=== PATIENT | female | born 1985 | race Caucasian/White ===

== ENCOUNTER 2017-07-29 09:39 | Emergency (ER) | payer MEDICAID, SELFPAY ==
[2017-07-29 09:40] VITALS: BP 152/82; PULSE 87; RESP 14; TEMP 36.9; O2SAT 98; BMI 27.8
--- NOTE | 2017-07-29 09:47 | XR_ITS ---
XR chest 2V HISTORY: ITS.REASON: chest pain ORDERING PHYSICIAN: Jose Westfall MD PATIENT AGE: 31 years COMPARISON: 09/06/2015 FINDINGS: The cardiomediastinal silhouette and pulmonary vascularity are within normal limits. The lungs are clear without infiltrates, suspicious nodules, or pleural effusions. No acute bony abnormalities. IMPRESSION: No change with no acute finding
--- NOTE | 2017-07-29 09:57 | [facility].EDCP ---
ED Disposition Clinical Impression: Atypical chest pain, Pleurisy Disposition: Home, Self-Care Condition on Discharge: Good Additional Instructions: Daily aspirin Finish antibiotics Regular treadmill stress test this afternoon Follow-up with Clarita adam after the stress test. Return if needed. - Critical Care Critical Care Time: No Attestation: On , the high probability of a clinically significant, sudden or life threatening deterioration of the following system(s) required my full and direct attention, intervention and personal management. The time I documented below is in addition to time spent performing reported procedures but includes the following listed in this critical care notation. Medical Decision Making Vital Signs: 07/29/17 09:40 07/29/17 11:10 07/29/17 11:54 Temperature 98.4 F 98.2 F Temperature Source Oral Oral Pulse Rate [Right Brachial] 87 76 75 Respiratory Rate 14 18 14 Blood Pressure [Right Arm] 152/82 115/59 121/75 Blood Pressure Mean [Right Arm] 105 77 90 Blood Pressure Source [Right Arm] Automatic Cuff Automatic Cuff Automatic Cuff Blood Pressure Position [Right Arm] Sitting Supine Sitting 02 Sat by Pulse Oximetry 98 98 99 Oxygen Delivery Method Room Air Room Air Room Air - Lab Data Lab Results 07/29/17 09:45: WBC 7.1, RBC 4.94, Hgb 15.6, Hct 46.9, MCV 95.1, MCH 31.5 H, MCHC 33.2, RDW 12.4, Plt Count 269, MPV 7.0 L, Neut % (Auto) 61.9, Lymph % (Auto) 29.4, [place] % (Auto) 5.9, Eos % (Auto) 2.3, Baso % (Auto) 0.5, Neut # (Auto) 4.4, Lymph # (Auto) 2.1, [place] # (Auto) 0.4, Eos # (Auto) 0.2, Baso # (Auto) 0.0 07/29/17 09:45: Sodium 138, Potassium 4.1, Chloride 102, Carbon Dioxide 28, Anion Gap 12.1, BUN 12, Creatinine 0.95, Estimated Creat Clear 118, Estimated GFR 70, Est GFR ( Amer) 84, Glucose 92, Calcium 9.6, Total Bilirubin 0.6, AST 19, ALT 22, Alkaline Phosphatase 60, Total Creatine Kinase 72, CK-MB (CK-2) < 0.5, CK-MB (CK-2) Rel Index 0.7, Troponin I < 0.02, Total Protein 8.9 H, Albumin 4.6, Globulin 4.3 H, Albumin/Globulin Ratio 1.1 07/29/17 09:45: D-Dimer < 100 07/29/17 09:45: B-Natriuretic Peptide < 5 07/29/17 09:45: ESR 25 H 07/29/17 10:05: Group A Strep Rapid Negative 07/29/17 12:09: Troponin I < 0.02 Result diagrams: 07/29/17 09:45 07/29/17 09:45 Orders (Tests/Meds): ORDERS Category Date Time Status Strep Screen Confirmation Stat Micro 07/29/17 10:05 Received - Sai Inquiry Pt receiving controlled substance: No Sai was queried for this patient: No Medical Decision Making Narrative: I did discuss with the patient her cardiac and PE risk factors. She is a low risk for coronary artery disease and pain. The patient tested negative for coronary artery disease and was ruled out for myocardial infarction by 2 negative troponins. Her d-dimer was negative. Her chest x-ray was within normal limits. The patient's sed rate was 25 which is more indicative of pleurisy and a post strep illness. She was scheduled for a regular treadmill stress test this afternoon. She was advised for daily aspirin. I called Clarita Adam her primary care physician and informed her of this afternoon test and she is to follow on the results. Patient was discharged in hemodynamically and neurologically stable condition follow-up with a primary care physician. Return if needed. Chest Pain HPI - General Chief Complaint: Chest Pain Stated Complaint: CHEST PAIN Mode of Arrival: Ambulatory Source of Information: Patient Limitations: No Limitations Description of Symptoms (Recalled from ER Triage Doc. by RN): PT ADVISES LAST NIGHT SHE HAD AN EPISODE LAST NIGHT OF CHEST PAIN AND SOA. THIS MORNING SHE WOKE UP STILL HAVING A DULL CONSTANT PAIN IN HER CHEST. SHE TOOK SOME ASA AND CONTACTED HER FAMILY DOC. - History of Present Illness HPI narrative: 31 years old white female with history of anxiety and panic attacks in the form of chest pain and palpitati
--- NOTE | 2017-07-29 10:01 | ED_ITS ---
ED Disposition Clinical Impression: Atypical chest pain, Pleurisy Disposition: Home, Self-Care Condition on Discharge: Good Additional Instructions: Daily aspirin Finish antibiotics Regular treadmill stress test this afternoon Follow-up with Clarita adam after the stress test. Return if needed. - Critical Care Critical Care Time: No Attestation: On , the high probability of a clinically significant, sudden or life threatening deterioration of the following system(s) required my full and direct attention, intervention and personal management. The time I documented below is in addition to time spent performing reported procedures but includes the following listed in this critical care notation. Medical Decision Making Vital Signs: 07/29/17 09:40 07/29/17 11:10 07/29/17 11:54 Temperature 98.4 F 98.2 F Temperature Source Oral Oral Pulse Rate [Right Brachial] 87 76 75 Respiratory Rate 14 18 14 Blood Pressure [Right Arm] 152/82 115/59 121/75 Blood Pressure Mean [Right Arm] 105 77 90 Blood Pressure Source [Right Arm] Automatic Cuff Automatic Cuff Automatic Cuff Blood Pressure Position [Right Arm] Sitting Supine Sitting 02 Sat by Pulse Oximetry 98 98 99 Oxygen Delivery Method Room Air Room Air Room Air - Lab Data Lab Results 07/29/17 09:45: WBC 7.1, RBC 4.94, Hgb 15.6, Hct 46.9, MCV 95.1, MCH 31.5 H, MCHC 33.2, RDW 12.4, Plt Count 269, MPV 7.0 L, Neut % (Auto) 61.9, Lymph % (Auto ) 29.4, [place] % (Auto) 5.9, Eos % (Auto) 2.3, Baso % (Auto) 0.5, Neut # (Auto) 4.4, Lymph # (Auto) 2.1, [place] # (Auto) 0.4, Eos # (Auto) 0.2, Baso # (Auto) 0.0 07/29/17 09:45: Sodium 138, Potassium 4.1, Chloride 102, Carbon Dioxide 28, Anion Gap 12.1, BUN 12, Creatinine 0.95, Estimated Creat Clear 118, Estimated GFR 70, Est GFR ( Amer) 84, Glucose 92, Calcium 9.6, Total Bilirubin 0.6 , AST 19, ALT 22, Alkaline Phosphatase 60, Total Creatine Kinase 72, CK-MB (CK-2 ) < 0.5, CK-MB (CK-2) Rel Index 0.7, Troponin I < 0.02, Total Protein 8.9 H, Albumin 4.6, Globulin 4.3 H, Albumin/Globulin Ratio 1.1 07/29/17 09:45: D-Dimer < 100 07/29/17 09:45: B-Natriuretic Peptide < 5 07/29/17 09:45: ESR 25 H 07/29/17 10:05: Group A Strep Rapid Negative 07/29/17 12:09: Troponin I < 0.02 Result diagrams: 07/29/17 09:45 07/29/17 09:45 Orders (Tests/Meds): ORDERS Category Date Time Status Strep Screen Confirmation Stat Micro 07/29/17 10:05 Received - Sai Inquiry Pt receiving controlled substance: No Sai was queried for this patient: No Medical Decision Making Narrative: I did discuss with the patient her cardiac and PE risk factors. She is a low risk for coronary artery disease and pain. The patient tested negative for coronary artery disease and was ruled out for myocardial infarction by 2 negative troponins. Her d-dimer was negative. Her chest x-ray was within normal limits. The patient's sed rate was 25 which is more indicative of pleurisy and a post strep illness. She was scheduled for a regular treadmill stress test this afternoon. She was advised for daily aspirin. I called Clarita Adam her primary care physician and informed her of this afternoon test and she is to follow on the results. Patient was discharged in hemodynamically and neurologically stable condition follow-up with a primary care physician. Return if needed. Chest Pain HPI - General Chief Comp
[2017-07-29 10:09] LABS: Basophils % 0.5 % (0.1-2.0); Eosinophils # 0.2 K/mm3 (0.0-0.4); Eosinophils % 2.3 % (0.1-12.0); Hematocrit 46.9 % (37.0-47.0); Hemoglobin 15.6 g/dL (12.2-16.2); Lymphocytes # 2.1 K/mm3 (0.7-4.5); Lymphocytes % 29.4 K/mm3 (10-50); Mean Corpuscular HGB Conc 33.2 g/dL (31.8-35.4); Mean Corpuscular Hemoglobin 31.5 pg (27.0-31.2); Mean Corpuscular Volume 95.1 fl (81-99); Monocytes # 0.4 K/mm3 (0.1-1.0); Monocytes % 5.9 % (1.7-9.3); Neutrophils # 4.4 K/mm3 (1.8-7.8); Neutrophils % 61.9 % (37.0-80.0); Platelet Count 269 K/mm3 (142-424); Red Blood Count 4.94 M/mm3 (4.20-5.40); Red Cell Distribution Width 12.4 % (11.5-17.5); White Blood Count 7.1 K/mm3 (4.8-10.8)
[2017-07-29 10:18] LABS: Strep Scrn Group A (Rapid) Negative (Negative)
[2017-07-29 10:37] LABS: Alanine Aminotransferase 22 U/L (12-78); Albumin Level 4.6 gm/dL (3.4-5.0); Albumin/Globulin Ratio 1.1 (1.1-1.8); Alkaline Phosphatase 60 U/L (46-116); Anion Gap 12.1 mEq/L (5-15); Aspartate Amino Transferase 19 U/L (15-37); Bilirubin,Total 0.6 mg/dL (0.2-1.0); Blood Urea Nitrogen 12 mg/dL (7-18); Calcium 9.6 mg/dL (8.5-10.1); Carbon Dioxide 28 mmol/L (21.0-32.0); Chloride 102 mmol/L (98-107); Creatine Kinase 72 U/L (26-192); Creatinine Clearance Estimated 118 mL/min (0-300); Creatinine,Serum 0.95 mg/dL (0.55-1.02); Estimated Glomerular Filt Rate 70 ml/min (>60); GFR (African American) 84 ML/MIN (>60); Globulin 4.3 gm/dl (1.3-3.2); Glucose 92 mg/dL (74-106); Potassium 4.1 mmoL/L (3.5-5.1); Sodium 138 mmol/L (136-145); Total Protein,Serum 8.9 gm/dL (6.4-8.2); Troponin I < 0.02 ng/ml (0.00-0.06)
[2017-07-29 10:41] LABS: CKMB Relative Index 0.7 U/L (0-4.0); Creatine Kinase MB < 0.5 mg/ml (0.0-3.6)
[2017-07-29 11:10] VITALS: BP 115/59; PULSE 76; RESP 18; O2SAT 98
[2017-07-29 11:19] LABS: D-Dimer < 100 (0-400)
[2017-07-29 11:33] LABS: Erythrocyte Sedimentation Rate 25 mm/hr (0-20)
[2017-07-29 11:54] VITALS: BP 121/75; PULSE 75; RESP 14; TEMP 36.8; O2SAT 99
[2017-07-29 12:40] LABS: Troponin I < 0.02 ng/ml (0.00-0.06)
[2017-07-29 13:14] VITALS: BP 121/75; PULSE 78; RESP 14; TEMP 36.9
== END 2017-07-29 13:17 | disposition home or self-care (01) ==
PROVIDERS: Emergency Provider Emergency Medicine; Family Provider Internal Medicine Adolescent Medicine; PCP Physician Assistant
DX: R07.9 Chest pain, unspecified (principal); R09.1 Pleurisy; R07.89 Other chest pain; R06.02 Shortness of breath
CPT/HCPCS: 71046; 80053; 82550; 82553; 83880; 84484; 85025; 85378; 85651; 87430; 93005; 93041; 99284

== ENCOUNTER → 2017-07-29 13:10 | Outpatient (CLI) | payer MEDICAID, SELFPAY | PROVIDERS: PCP Emergency Medicine; Visit Provider Emergency Medicine | DX: R07.9 Chest pain, unspecified (principal) | CPT/HCPCS: 93017 ==

== ENCOUNTER → 2017-08-09 09:14 | Outpatient (REF) | payer MEDICAID, SELFPAY ==
[2017-08-09 14:07] LABS: Basophils % 0.5 % (0.1-2.0); Eosinophils # 0.3 K/mm3 (0.0-0.4); Eosinophils % 4.2 % (0.1-12.0); Hematocrit 41.4 % (37.0-47.0); Hemoglobin 13.7 g/dL (12.2-16.2); Lymphocytes # 2.4 K/mm3 (0.7-4.5); Mean Corpuscular HGB Conc 33.1 g/dL (31.8-35.4); Mean Corpuscular Hemoglobin 31.7 pg (27.0-31.2); Mean Corpuscular Volume 95.9 fl (81-99); Mean Platelet Volume 7.9 fl (7.4-10.4); Monocytes # 0.4 K/mm3 (0.1-1.0); Monocytes % 6.2 % (1.7-9.3); Neutrophils # 3.2 K/mm3 (1.8-7.8); Neutrophils % 51.1 % (37.0-80.0); Platelet Count 279 K/mm3 (142-424); Red Blood Count 4.32 M/mm3 (4.20-5.40); Red Cell Distribution Width 12.1 % (11.5-17.5); White Blood Count 6.3 K/mm3 (4.8-10.8)
[2017-08-09 14:08] LABS: C-Reactive Protein < 0.2 mg/L (0.0-0.9)
[2017-08-10 11:18] LABS: Anti-Jo-1 <0.2 AI (0.0-0.9); Anti-Smith Antibody <0.2 AI (0.0-0.9); Antichromatin Antibodies <0.2 AI (0.0-0.9); Antiscleroderma-70 Antibodies <0.2 AI (0.0-0.9); RNP Antibodies <0.2 AI (0.0-0.9); Sjogren's Anti-SS-A <0.2 AI (0.0-0.9); Sjogren's Anti-SS-B <0.2 AI (0.0-0.9)
[2017-08-10 13:38] LABS: Anti-Centromere B Antibodies <0.2 AI (0.0-0.9); Anti-DNA (DS) Ab Qn <1 IU/mL (0-9); Folate 15.5 ng/mL (>3.0); RA Latex Turbid. <10.0 IU/mL (0.0-13.9); Vitamin B12 788 pg/mL (232-1245)
[2017-08-13 05:18] LABS: 1,25-Dihydroxy, Vitamin D-2 <10 pg/mL (.)
[2017-08-13 18:22] LABS: 1,25 Dihydroxy Vitamin D 25 pg/mL (.); 1,25-Dihydroxy, Vitamin D-3 25 pg/mL (.)
== END ==
LOC: LAB 09:14
PROVIDERS: Visit Provider Physician Assistant
DX: R70.0 Elevated erythrocyte sedimentation rate (principal)
CPT/HCPCS: 82607; 82652; 82746; 85025; 86038; 86140; 86431

== ENCOUNTER → 2017-10-06 13:09 | Outpatient (CLI) | payer MEDICAID, SELFPAY ==
--- NOTE | 2017-10-06 13:22 | XR_ITS ---
XR acute abdomen series HISTORY: ITS.REASON: LLQ pain ORDERING PHYSICIAN: FELIPE Hopkins PATIENT AGE: 31 years COMPARISON: None FINDINGS: A frontal view of the chest shows no acute finding. Upright and supine views of the abdomen show a nonspecific nonobstructive bowel gas pattern with a mild amount of retained colonic feces. Nonspecific calcifications are present in the pelvis. There are calcific densities overlying both kidneys suggesting bilateral nephrolithiasis. This may be confirmed with CT. IMPRESSION: Bilateral nephrolithiasis
[2017-10-06 13:30] LABS: Basophils % 0.3 % (0.1-2.0); Eosinophils # 0.1 K/mm3 (0.0-0.4); Eosinophils % 1.3 % (0.1-12.0); Hematocrit 44.7 % (37.0-47.0); Hemoglobin 14.7 g/dL (12.2-16.2); Lymphocytes # 1.9 K/mm3 (0.7-4.5); Lymphocytes % 25.9 K/mm3 (10-50); Mean Corpuscular HGB Conc 32.9 g/dL (31.8-35.4); Mean Corpuscular Hemoglobin 31.6 pg (27.0-31.2); Mean Corpuscular Volume 96.1 fl (81-99); Mean Platelet Volume 7.2 fl (7.4-10.4); Monocytes # 0.4 K/mm3 (0.1-1.0); Monocytes % 4.7 % (1.7-9.3); Neutrophils # 5.1 K/mm3 (1.8-7.8); Neutrophils % 67.8 % (37.0-80.0); Platelet Count 289 K/mm3 (142-424); Red Blood Count 4.65 M/mm3 (4.20-5.40); White Blood Count 7.5 K/mm3 (4.8-10.8)
[2017-10-06 14:36] LABS: Alanine Aminotransferase 20 U/L (12-78); Albumin Level 4.1 gm/dL (3.4-5.0); Albumin/Globulin Ratio 1.1 (1.1-1.8); Alkaline Phosphatase 57 U/L (46-116); Anion Gap 13.1 mEq/L (5-15); Aspartate Amino Transferase 11 U/L (15-37); Bilirubin,Total 0.6 mg/dL (0.2-1.0); Blood Urea Nitrogen 9 mg/dL (7-18); Calcium 9.4 mg/dL (8.5-10.1); Carbon Dioxide 28 mmol/L (21.0-32.0); Chloride 103 mmol/L (98-107); Chol/HDL Ratio 3.1 (1-3.5); Cholesterol 198 mg/dL (140-200); Creatinine,Serum 0.87 mg/dL (0.55-1.02); Estimated Glomerular Filt Rate 77 ml/min (>60); GFR (African American) 93 ML/MIN (>60); Globulin 3.8 gm/dl (1.3-3.2); Glucose 99 mg/dL (74-106); HDL Cholesterol 63 mg/dL (29-89); LDL Cholesterol 127 mg/dL (0-130); Potassium 4.1 mmoL/L (3.5-5.1); Sodium 140 mmol/L (136-145); T4 (Thyroxine) 6.5 ug/dl (4.7-13.3); Thyroid Stimulating Hormone 2.09 uIU/ml (0.358-3.740); Total Protein,Serum 7.9 gm/dL (6.4-8.2); Triglycerides 38 mg/dL (30-200); VLDL Cholesterol 8 mg/dL (0-40)
[2017-10-06 17:25] LABS: Erythrocyte Sedimentation Rate 18 mm/hr (0-20)
== END ==
PROVIDERS: PCP Physician Assistant; Visit Provider Physician Assistant
DX: K92.1 Melena (principal); R10.32 Left lower quadrant pain
CPT/HCPCS: 36415; 74021; 80053; 80061; 84436; 84443; 85025; 85651

== ENCOUNTER → 2018-02-01 11:06 | Outpatient (CLI) | payer MEDICAID, SELFPAY ==
[2018-02-04 11:38] LABS: Alanine Aminotransferase 25 U/L (12-78); Albumin Level 3.9 gm/dL (3.4-5.0); Albumin/Globulin Ratio 1.1 (1.1-1.8); Alkaline Phosphatase 54 U/L (46-116); Anion Gap 11.2 mEq/L (5-15); Aspartate Amino Transferase 13 U/L (15-37); Bilirubin,Total 0.3 mg/dL (0.2-1.0); Blood Urea Nitrogen 9 mg/dL (7-18); Calcium 9.1 mg/dL (8.5-10.1); Carbon Dioxide 29 mmol/L (21.0-32.0); Chloride 104 mmol/L (98-107); Chol/HDL Ratio 3.7 (1-3.5); Cholesterol 180 mg/dL (140-200); Creatinine,Serum 0.87 mg/dL (0.55-1.02); Estimated Glomerular Filt Rate 76 ml/min (>60); GFR (African American) 93 ML/MIN (>60); Globulin 3.5 gm/dl (1.3-3.2); Glucose 83 mg/dL (74-106); HDL Cholesterol 49 mg/dL (29-89); LDL Cholesterol 111 mg/dL (0-130); Potassium 4.2 mmoL/L (3.5-5.1); Sodium 140 mmol/L (136-145); T4 (Thyroxine) 5.2 ug/dl (4.7-13.3); Thyroid Stimulating Hormone 2.01 uIU/ml (0.358-3.740); Total Protein,Serum 7.4 gm/dL (6.4-8.2); Triglycerides 101 mg/dL (30-200); VLDL Cholesterol 20 mg/dL (0-40)
[2018-02-04 11:39] LABS: C-Reactive Protein < 0.2 mg/L (0.0-0.9)
[2018-02-04 12:23] LABS: Basophils # 0.1 K/mm3 (0-0.2); Basophils % 1.1 % (0.1-2.0); Eosinophils # 0.3 K/mm3 (0.0-0.4); Erythrocyte Sedimentation Rate 4 mm/hr (0-20); Hematocrit 42.9 % (37.0-47.0); Hemoglobin 13.9 g/dL (12.2-16.2); Lymphocytes # 1.8 K/mm3 (0.7-4.5); Lymphocytes % 26.6 K/mm3 (10-50); Mean Corpuscular HGB Conc 32.5 g/dL (31.8-35.4); Mean Corpuscular Hemoglobin 31.7 pg (27.0-31.2); Mean Corpuscular Volume 97.6 fl (81-99); Mean Platelet Volume 8.3 fl (7.4-10.4); Monocytes # 0.3 K/mm3 (0.1-1.0); Monocytes % 4.6 % (1.7-9.3); Neutrophils # 4.3 K/mm3 (1.8-7.8); Neutrophils % 63.7 % (37.0-80.0); Platelet Count 392 K/mm3 (142-424); Red Cell Distribution Width 12.5 % (11.5-17.5); White Blood Count 6.7 K/mm3 (4.8-10.8)
[2018-02-05 18:28] LABS: Vitamin B12 687 pg/mL (232-1245)
[2018-02-07 11:13] LABS: Anti-Jo-1 <0.2 AI (0.0-0.9); Anti-Smith Antibody <0.2 AI (0.0-0.9); Antichromatin Antibodies <0.2 AI (0.0-0.9); Antiscleroderma-70 Antibodies <0.2 AI (0.0-0.9); RNP Antibodies <0.2 AI (0.0-0.9); Sjogren's Anti-SS-A <0.2 AI (0.0-0.9); Sjogren's Anti-SS-B <0.2 AI (0.0-0.9)
[2018-02-09 06:14] LABS: Anti-Centromere B Antibodies <0.2 AI (0.0-0.9); Anti-DNA (DS) Ab Qn <1 IU/mL (0-9)
== END ==
PROVIDERS: Family Provider Internal Medicine Adolescent Medicine; PCP Physician Assistant; Visit Provider Physician Assistant
DX: R07.89 Other chest pain (principal); K92.1 Melena
CPT/HCPCS: 80053; 80061; 82607; 82652; 84436; 84443; 85025; 85651; 86140; 86225; 86235

== ENCOUNTER → 2018-02-08 14:21 | Outpatient (CLI) | payer MEDICAID, SELFPAY ==
--- NOTE | 2018-02-08 14:23 | CA_ITS ---
PROCEDURE: 2-D M-mode and color Doppler study INDICATIONS FOR THE TEST: Chest pain + COPD Heart Murmur Tobacco Smoking Palpitations Fatigue Syncope Edema Hypertension Diabetes Mellitus Rheumatic Fever SOB+RG Obesity Hyperlipidemia Family History HD Additional History PATIENT INFORMATION HEIGHT: 69 WEIGHT:198 GENDER: Female B/P:124/78 2-D/M-MODE INTERPRETATION: 2-D MEASUREMENTS OBSERVED VALUES IN CMS Right Ventricular Dimension (RVDd) 2.8 Interventricular Septum (Thickness)(IVsd) 1.1 Left Ventricular Internal Dimensions(LVIDd) 4.9 Left Ventricular Posterior Wall (Thickness)(LVPWd) 0.6 Aortic Root 3.1 Aortic Cusp Separation 2.5 Left Atrial Dimensions (LAD) 3.9 2D 1. Left atrium is normal size, left ventricle is normal size, there is no concentric left ventricular hypertrophy, visually estimated ejection fraction 55% with no obvious regional wall motion abnormality. 2. The right atrium and right ventricle are normal size and contractility. 3. The aortic valve is minimally thickened and fibrosed. 4. The mitral and tricuspid valvular grossly normal. 5. The pulmonic valve is poorly visualized. 6. No significant pericardial effusion noted. DOPPLER INTERROGATION: Doppler interrogation of the aortic, mitral and tricuspid valvular presence of mild mitral and tricuspid regurgitation, tricuspid regurgitant jet velocity is insufficient for calculation of the right ventricular systolic pressure, diastolic parameters are within normal range. CONCLUSION: 1. Normal left ventricular size, visually estimated ejection fraction 55% with no obvious regional wall motion abnormality, diastolic parameters are within normal range. 2. Mild mitral and tricuspid regurgitation 3. No significant pericardial effusion noted.
== END ==
PROVIDERS: Family Provider Internal Medicine Adolescent Medicine; PCP Physician Assistant; Visit Provider Physician Assistant
DX: R07.9 Chest pain, unspecified (principal)
CPT/HCPCS: 93306

== ENCOUNTER → 2019-07-20 17:40 | Outpatient (CLI) | payer MEDICAID, SELFPAY ==
[2019-07-20 19:05] LABS: Anion Gap 14.2 mEq/L (5-15); Blood Urea Nitrogen 12 mg/dL (7-18); Calcium 9.3 mg/dL (8.5-10.1); Carbon Dioxide 27 mmol/L (21.0-32.0); Chloride 102 mmol/L (98-107); Creatinine,Serum 0.86 mg/dL (0.55-1.02); Estimated Glomerular Filt Rate 77 ml/min (>60); GFR (African American) 93 ML/MIN (>60); Glucose 94 mg/dL (74-106); Potassium 4.2 mmoL/L (3.5-5.1); Sodium 139 mmol/L (136-145)
== END ==
PROVIDERS: Visit Provider Physician Assistant
DX: L70.9 Acne, unspecified (principal); M54.9 Dorsalgia, unspecified
CPT/HCPCS: 36415; 80048

== ENCOUNTER → 2021-04-16 09:24 | Outpatient (CLI) | payer BC, SELFPAY ==
[2021-04-16 12:57] LABS: Basophils # 0.1 K/mm3 (0-0.2); Basophils % 0.9 % (0.1-2.0); Eosinophils # 0.2 K/mm3 (0.0-0.4); Eosinophils % 2.8 % (0.1-12.0); Hemoglobin 13.6 g/dL (12.2-16.2); Lymphocytes % 31.2 % (10-50); Mean Corpuscular HGB Conc 33.1 g/dL (31.8-35.4); Mean Corpuscular Hemoglobin 32.3 pg (27.0-31.2); Mean Corpuscular Volume 97.8 fl (81-99); Mean Platelet Volume 7.3 fl (7.4-10.4); Monocytes # 0.4 K/mm3 (0.1-1.0); Monocytes % 5.5 % (1.7-9.3); Neutrophils # 3.8 K/mm3 (1.8-7.8); Neutrophils % 59.6 % (37.0-80.0); Platelet Count 317 K/mm3 (142-424); Red Blood Count 4.19 M/mm3 (4.20-5.40); Red Cell Distribution Width 12.3 % (11.5-17.5); White Blood Count 6.4 K/mm3 (4.8-10.8)
[2021-04-16 13:03] LABS: Chloride 103 mmol/L (98-107); Potassium 4.6 mmoL/L (3.5-5.1); Sodium 138 mmol/L (136-145)
[2021-04-16 13:05] LABS: Amylase 78 U/L (30-110)
[2021-04-16 13:06] LABS: Alanine Aminotransferase 16 U/L (12-78); Albumin Level 4.3 g/dl (3.5-5.0); Albumin/Globulin Ratio 1.4 (1.1-1.8); Alkaline Phosphatase 59 U/L (38-126); Anion Gap 13.6 mEq/L (5-15); Aspartate Amino Transferase 26 U/L (14-36); Bilirubin,Total 0.3 mg/dl (0.2-1.3); Blood Urea Nitrogen 13 mg/dl (7-17); Calcium 9.5 mg/dl (8.4-10.2); Carbon Dioxide 26 mmol/L (22.0-30.0); Estimated Glomerular Filt Rate 96 ml/min (>60); GFR (African American) 117 ML/MIN (>60); Glucose 92 mg/dl (74-100); HDL Cholesterol 59 mg/dl (40-60); Lipase 192 U/L (23-300); Total Protein,Serum 7.3 g/dl (6.3-8.2); Triglycerides 77 mg/dl (30-150); VLDL Cholesterol 15 mg/dL (0-40)
[2021-04-16 13:07] LABS: Chol/HDL Ratio 3.7 (1-3.5); Cholesterol 217 mg/dl (140-200)
[2021-04-16 13:17] LABS: Direct LDL Cholesterol 134.51 mg/dL (100-129)
[2021-04-16 13:37] LABS: Thyroid Stimulating Hormone 2.16 uIU/mL (0.465-4.68)
== END ==
PROVIDERS: PCP Physician Assistant; Visit Provider Physician Assistant
DX: R00.0 Tachycardia, unspecified (principal)
CPT/HCPCS: 80053; 80061; 82150; 83690; 84436; 84443; 85025; 93225; 93226

== ENCOUNTER → 2021-04-16 12:43 | Outpatient (CLI) | payer BC, SELFPAY | PROVIDERS: Visit Provider Physician Assistant | DX: R00.0 Tachycardia, unspecified (principal) | CPT/HCPCS: 80053; 80061; 82150; 83690; 84436; 84443; 85025 ==

== ENCOUNTER → 2021-08-28 07:15 | Outpatient (CLI) | payer BC, SELFPAY ==
--- NOTE | 2021-08-28 07:16 | CT_ITS ---
FINAL REPORT CLINICAL HISTORY: vertigo FINDINGS: Axial images of the head were obtained without contrast. Coronal reformatted images were also obtained.This study was performed with techniques to keep radiation doses as low as reasonably achievable (ALARA). Individualized dose reduction techniques using automated exposure control or adjustment of mA and/or kV according to the patient's size were employed. There is no evidence of intracranial hemorrhage or mass. The ventricular size is within normal limits. There is no evidence of shift of the midline structures. No abnormal extra axial fluid collection is identified. No skull abnormality is seen on the bone window images. IMPRESSION: No acute intracranial abnormality. Reviewed, Interpreted and Dictated by Pancho Ramirez III, MD Transcribed by Erin Mckeon Authenticated by Pancho Ramirez III, MD on 08/28/2021 09:06:35 AM [facility]
== END ==
PROVIDERS: PCP Physician Assistant; Visit Provider Physician Assistant
DX: R42 Dizziness and giddiness (principal)
CPT/HCPCS: 70450

== ENCOUNTER → 2021-09-23 16:00 | Outpatient (CLI) | payer BC, SELFPAY ==
[2021-09-23 17:40] LABS: Basophils % 0.5 % (0.1-2.0); Eosinophils # 0.1 K/mm3 (0.0-0.4); Eosinophils % 1.7 % (0.1-12.0); Hematocrit 44.9 % (37.0-47.0); Lymphocytes # 2.1 K/mm3 (0.7-4.5); Lymphocytes % 25.4 % (10-50); Mean Corpuscular HGB Conc 33.4 g/dL (31.8-35.4); Mean Corpuscular Hemoglobin 32.7 pg (27.0-31.2); Mean Corpuscular Volume 97.9 fl (81-99); Mean Platelet Volume 7.6 fl (7.4-10.4); Monocytes # 0.4 K/mm3 (0.1-1.0); Monocytes % 5.2 % (1.7-9.3); Neutrophils # 5.6 K/mm3 (1.8-7.8); Neutrophils % 67.2 % (37.0-80.0); Platelet Count 330 K/mm3 (142-424); Red Blood Count 4.58 M/mm3 (4.20-5.40); Red Cell Distribution Width 13.1 % (11.5-17.5); White Blood Count 8.3 K/mm3 (4.8-10.8)
[2021-09-23 17:59] LABS: Alanine Aminotransferase 17 U/L (12-78); Albumin Level 4.5 g/dl (3.5-5.0); Albumin/Globulin Ratio 1.7 (1.1-1.8); Alkaline Phosphatase 45 U/L (38-126); Anion Gap 12.1 mEq/L (5-15); Aspartate Amino Transferase 22 U/L (14-36); Bilirubin,Total 0.6 mg/dl (0.2-1.3); Blood Urea Nitrogen 11 mg/dl (7-17); Calcium 9.2 mg/dl (8.4-10.2); Carbon Dioxide 25 mmol/L (22.0-30.0); Chloride 103 mmol/L (98-107); Chol/HDL Ratio 4.3 (1-3.5); Cholesterol 204 mg/dl (140-200); Estimated Glomerular Filt Rate 72 ml/min (>60); GFR (African American) 87 ML/MIN (>60); Globulin 2.6 g/dL (1.3-3.2); Glucose 84 mg/dl (74-100); HDL Cholesterol 47 mg/dl (40-60); Potassium 4.1 mmoL/L (3.5-5.1); Sodium 136 mmol/L (136-145); Total Protein,Serum 7.1 g/dl (6.3-8.2); Triglycerides 105 mg/dl (30-150); VLDL Cholesterol 21 mg/dL (0-40)
[2021-09-23 18:11] LABS: C-Reactive Protein 2.9 mg/L (0-4); Direct LDL Cholesterol 123.08 mg/dL (100-129)
[2021-09-23 18:16] LABS: 25-OH Vitamin D, Total 36.7 ng/mL (30-100)
[2021-09-23 18:17] LABS: Erythrocyte Sedimentation Rate 25 mm/hr (0-20)
[2021-09-23 18:19] LABS: T4 (Thyroxine) 7.3 ug/dl (5.53-11.0)
[2021-09-23 18:32] LABS: Thyroid Stimulating Hormone 1.04 uIU/mL (0.465-4.68)
[2021-09-23 18:50] LABS: Vitamin B12 836 pg/mL (239-931)
[2021-09-25 14:19] LABS: Anti-Centromere B Antibodies <0.2 AI (0.0-0.9); Anti-DNA (DS) Ab Qn <1 IU/mL (0-9); Anti-Jo-1 <0.2 AI (0.0-0.9); Anti-Smith Antibody <0.2 AI (0.0-0.9); Antichromatin Antibodies <0.2 AI (0.0-0.9); Antiscleroderma-70 Antibodies <0.2 AI (0.0-0.9); RNP Antibodies <0.2 AI (0.0-0.9); Sjogren's Anti-SS-A <0.2 AI (0.0-0.9); Sjogren's Anti-SS-B <0.2 AI (0.0-0.9)
[2021-09-25 16:15] LABS: EBV Ab VCA, IgG >600.0 U/mL (0.0-17.9); EBV Ab VCA, IgM <36.0 U/mL (0.0-35.9); EBV Nuclear Antigen Ab, IgG 38.5 U/mL (0.0-17.9)
== END ==
PROVIDERS: Visit Provider Physician Assistant
DX: R53.82 Chronic fatigue, unspecified (principal); U09.9 Post COVID-19 condition, unspecified
CPT/HCPCS: 80053; 80061; 82306; 82607; 84436; 84443; 85025; 85651; 86140; 86225; 86235; 86664; 86665